=== PATIENT | female | born 1990 | race American Indian/Alaskan Native ===

== ENCOUNTER 2017-10-31 03:39 | Emergency (ER) | payer OTHER ==
[2017-10-31 03:46] VITALS: BP 130/71
--- NOTE | 2017-10-31 05:20 | Emergency Department Report ---
ED ENT HPI - General Chief complaint: Sore Throat Stated complaint: SORETHROAT Time Seen by Provider: 10/31/17 05:14 Source: patient Mode of arrival: Ambulatory Limitations: No Limitations - History of Present Illness Initial comments: This is a 27 y.o. female that presents with sore throat and chills for 1 day. Patient reports having pain with swallowing liquids and solids. She is having pressure in both ears. She is currently taking benadryl because she thought she ate something that caused allergy. She have allergy to seafood but don't recall eating seafood yesterday. States symptoms where abrupt and started at night. Denies drooling, difficulty breathing, fever, cough, and voice change. MD complaint: sore throat, ear pain (ear pressure not pain) -: Last night Location: throat Severity: severe Severity scale (0 -10): 8 Quality: aching, constant Consistency: constant Improves with: none Worsens with: swallowing, eating Associated Symptoms: pain with swallowing, sore throat. denies: fever, cough, gum swelling, toothache, tinnitus, hearing loss, discharge from ear, rhinorrhea - Related Data Previous Rx's Medication Instructions Recorded Last Taken Type Amoxicillin [Amoxicillin TAB] 500 mg PO BID 10 Days #20 tablet 10/31/17 Unknown Rx Allergies Allergy/AdvReac Type Severity Reaction Status Date / Time seafood Allergy Anaphylaxis Uncoded 10/31/17 03:55 ED Dental HPI - General Chief complaint: Sore Throat Stated complaint: SORETHROAT Time Seen by Provider: 10/31/17 05:14 Source: patient Mode of arrival: Ambulatory Limitations: No Limitations - Related Data Previous Rx's Medication Instructions Recorded Last Taken Type Amoxicillin [Amoxicillin TAB] 500 mg PO BID 10 Days #20 tablet 10/31/17 Unknown Rx Allergies Allergy/AdvReac Type Severity Reaction Status Date / Time seafood Allergy Anaphylaxis Uncoded 10/31/17 03:55 ED Review of Systems ROS: Stated complaint: SORETHROAT Other details as noted in HPI Constitutional: denies: chills, fever Eyes: denies: as per HPI ENT: throat pain, congestion. denies: ear pain (pressure bilateral), dental pain, hearing loss, epistaxis Respiratory: denies: cough, orthopnea, shortness of breath, wheezing Cardiovascular: denies: chest pain, palpitations Gastrointestinal: denies: abdominal pain, nausea, diarrhea Neurological: denies: headache, weakness, numbness, paresthesias Psychiatric: denies: anxiety, depression ED Past Medical Hx - Past Medical History Previous Medical History?: No - Surgical History Past Surgical History?: No - Social History Smoking Status: Never Smoker Substance Use Type: None - Medications Home Medications: Home Medications Medication Instructions Recorded Confirmed Last Taken Type Amoxicillin [Amoxicillin TAB] 500 mg PO BID 10 Days #20 tablet 10/31/17 Unknown Rx ED Physical Exam - General Limitations: No Limitations General appearance: alert, in no apparent distress - ENT ENT exam: Present: mucous membranes moist, TM's normal bilaterally (pearly rowan , light reflex), normal external ear exam. Absent: normal orophraynx (red, swollen tonsils, no exudate, uvula midline) - Neck Neck exam: Present: lymphadenopathy (posterior cervical lymphadenopathy) - Respiratory Respiratory exam: Present: normal lung sounds bilaterally. Absent: respiratory distress, wheezes, rales, rhonchi, stridor - Cardiovascular Cardiovascular Exam: Present: regular rate, normal rhythm, normal heart sounds. Absent: systolic murmur, diastolic murmur, rubs, gallop - GI/Abdominal GI/Abdominal exam: Present: soft, normal bowel sounds. Absent: distended, tenderness, guarding, rebound, rigid - Neurological Exam Neurological exam: Present: alert, oriented X3, normal gait - Psychiatric Psychiatric exam: Present: normal affect, normal mood - Skin Skin exam: Present: warm, dry, intact, normal color. Absent: rash ED Course Vital Signs 10/31/17 10/31/17 03:41 03:51 Temperature 98.7 F 98.7 F Pulse Rate 87 87 Respiratory 16 18 Rate Blood Pressure 130/71 130/71 O2 Sat by Pulse 98 98 Oximetry ED Medical Decision Making - Medical Decision Making This is a 27 y.o. female that presents with sore throat and bilateral ear pressure for 1 day. Patient examined by me and stable. No distress noted. Rapid strep obtained and negative for strep A. Physical findings are susceptible for acute pharyngitis. Vitals stable. Given bicillin I-A 1.2 mL IM once and decadron 8 mg IM once in ER. Start penicillin V 500 mg po bid x 10 days. Take tylenol or ibuprofen for pain. Discussed plan with patient and she agreed with plan to treat outpatient. Discharged home. Follow up with PCP in 48-72 hours. Critical care attestation.: If time is entered above; I have spent that time in minutes in the direct care of this critically ill patient, excluding procedure time. ED Disposition Clinical Impression: Acute pharyngitis Qualifiers: Pharyngitis/tonsillitis etiology: other specified organisms Qualified Code(s): J02.8 - Acute pharyngitis due to other specified organisms Disposition: TO HOME OR SELFCARE Is pt being admited?: No Does the pt Need Aspirin: No Condition: Stable Instructions: Pharyngitis (ED) Additional Instructions: Expect symptoms to improve within 3 or 4 days. There is no need for bed rest or isolation. Use tyleonl or ibuprofen for symptoms of sore throat, headache, and fever. Return to work in 24 hours of taking antibiotics. Follow up with Primary Care Provider in 48-72 hours. Prescriptions: Amoxicillin [Amoxicillin TAB] 500 mg PO BID 10 Days #20 tablet Referrals: [facility] [Outside] - 3-5 Days [facility] [Outside] - 3-5 Days [facility] [Outside] - 3-5 Days Time of Disposition: 05:51 Print Language: BELARUSIAN
[2017-10-31] MEDS ORDERED: DECADRON IM ONE (05:30)
[2017-10-31] MEDS ORDERED: BICILLIN L-A IM ONE (05:43)
== END 2017-10-31 06:34 | disposition home or self-care (01) ==
LOC: ED 03:39
DX: J02.8 Acute pharyngitis due to other specified organisms (principal); H92.03 Otalgia, bilateral; R59.0 Localized enlarged lymph nodes; Z91.013 Allergy to seafood
CPT/HCPCS: 87116; 87430; 96372; 99283; J0561; J1100